=== PATIENT | male | born 1985 | race Asian ===

== ENCOUNTER 2024-04-07 08:15 | Outpatient (REF) | payer OTHER, SELFPAY ==
--- NOTE | ~2024-04-07 | US_ITS ---
EXAMINATION: US COMPLETE ABDOMEN WITH LIVER ELASTOGRAPHY CLINICAL INFORMATION: Chronic hepatitis B. COMPARISON: None available. TECHNIQUE: Real-time imaging of the abdominal viscera. Noninvasive ultrasound liver fibrosis assessment is performed using Annette ElastPQ point quantification shear wave elastography (pSWE) with a C5-2 MHz transducer. Multiple elastography samples are obtained. FINDINGS: PANCREAS: Normal. The visualized pancreatic head and body are normal in appearance. The remainder of the pancreas is obscured from visualization by the overlying bowel gas. ABDOMINAL AORTA: The proximal, middle, and distal aortic segments are normal in caliber. INFERIOR VENA CAVA: Visualized portions are normal. LIVER: Normal. The liver demonstrates normal size, contour and echogenicity. No focal lesion or intrahepatic biliary duct dilatation. The right lobe measures at least 18 cm in length. The left lobe measures 9.5 cm in length. Portal flow is towards the liver (hepatopetal). Shear wave liver elastography median stiffness is 1.69 m/s (reference: normal median stiffness is 1.3 m/s or less). IQR/median stiffness to assess sampling precision is 0.09 (reference: good quality data set is IQR/median stiffness of 0.15 or less). GALLBLADDER: 2 gallbladder polyps are seen measuring 5 and 6 mm in size. The gallbladder is physiologically distended without evidence of stones, sludge, wall thickening or pericholecystic fluid. COMMON BILE DUCT: Normal in caliber measuring 0.4 cm in diameter. RIGHT KIDNEY: Normal. No hydronephrosis. No renal calculi or focal parenchymal lesions. The kidney measures 10.2 cm in maximum dimension. LEFT KIDNEY: There is a mid renal 8 mm echogenic focus seen consistent with a nonobstructing calculus. No hydronephrosis. No focal parenchymal lesions. The kidney measures 10.4 cm in maximum dimension. SPLEEN: Spleen is enlarged measuring 14.3 cm in maximum dimension. FREE FLUID: None. US/US abdomen comp w elastography IMPRESSION: 1. Enlarged fatty liver. 2. Liver Elastography: In the absence of other known clinical signs, measurements rule out compensated advanced chronic liver disease. If there are known clinical signs, further testing may be needed for confirmation. REFERENCE: Society of Radiologists in Ultrasound Liver Stiffness Thresholds (2020): LIVER STIFFNESS THRESHOLDS: *Liver Stiffness equal or less than 1.3 m/s: High probability of being normal. *Liver Stiffness less than 1.7 m/s: In the absence of other known clinical signs, rules out compensated advanced chronic liver disease. *Liver Stiffness 1.7-2.1 m/s: Suggestive of compensated advanced chronic liver disease but need further test for confirmation. *Liver Stiffness over 2.1 m/s: Rules in compensated advanced chronic liver disease. *Liver Stiffness over 2.4 m/s: Suggestive of clinically significant portal hypertension. QUALITY OF DATA SET: *IQR/Median value equal or less than 0.15 implies a quality data set. *IQR/Median value over 0.15 implies a poor quality data set. SIGNIFICANT CHANGE FROM PRIOR EXAM: Significant change if liver stiffness measurement is 10% or greater from prior exam. OTHER CONSIDERATIONS: The stage of liver fibrosis may be overestimated in the setting of acute hepatitis, liver inflammation, elevated liver function tests, hepatic vascular congestion, obstructive cholestasis, non-fasting state, and infiltrative diseases such as amyloidosis and lymphoma. In some patients with NAFLD, the liver stiffness thresholds for compensated advanced chronic liver disease may be lower. In causes other than viral hepatitis and NAFLD, liver stiffness thresholds are not well established. Electronically signed by: Carlo Rubalcava MD 04/14/2024 02:10 PM EDT
[2024-04-07 09:28] LABS: MANUAL DIFF FLAG NO
[2024-04-07 09:34] LABS: Basophils Percent Auto 0.4 % (0-2); Eosinophils Absolute Auto 0.2 X10*3/uL (0.0-0.4); Eosinophils Percent Auto 3.4 % (0-4); Hematocrit 49.5 % (42.0-52.0); Hemoglobin 16.7 g/dl (14.0-18.0); Imm Gran Abs Auto 0.04 X10*3/uL (0.00-0.03); Imm Gran Pct Auto 0.6 % (0.0-0.4); Lymphocytes Absolute Auto 1.6 X10*3/uL (1.2-4.9); Lymphocytes Percent Auto 23.9 % (20-40); Mean Corpuscular HGB Conc 33.7 g/dl (31.0-36.0); Mean Corpuscular Hemoglobin 29.3 pg (27.0-33.0); Mean Platelet Volume 10.7 fL (9.4-12.4); Monocytes Absolute Auto 0.4 X10*3/uL (0.1-1.2); Monocytes Percent Auto 6.3 % (2-11); Neutrophils Absolute Auto 4.5 x10*3/uL (2.0-8.3); Neutrophils Percent Auto 65.4 % (45-73); Platelet Count 180 X10*3/uL (160-400); Red Blood Count 5.69 X10*6/uL (4.60-5.80); Red Cell Distribution Width 12.3 % (11.0-16.0); White Blood Count 6.8 X10*3/uL (4.8-10.8)
[2024-04-07 09:38] LABS: INTERNATIONAL NORM RATIO 0.9 (0.9-1.1); Prothrombin Time 11.2 SEC (11.1-13.3)
[2024-04-07 10:21] LABS: Alanine Aminotransferase 79 U/L (0-40); Albumin Level 4.4 g/dL (3.5-5.0); Alkaline Phosphatase 94 U/L (39-117); Aspartate Amino Transferase 35 U/L (5-37); Bilirubin Direct 0.2 mg/dL (0.0-0.5); Bilirubin Total 0.7 mg/dL (0.0-1.0); Total Protein 7.5 g/dL (6.5-8.0)
[2024-04-07 10:36] LABS: HBS Num1 0.44 mIU/mL (0-7.99); HBc Num1 5.47 S/CO (0.00-0.79); ~HepC Num1 0.07 S/CO (0.00-0.79); ~Hepatitis B Surface Antibody NONREACTIVE (Nonreactive); ~Hepatitis C Antibody Nonreactive (Nonreactive)
[2024-04-07 10:41] LABS: Hepatitis A Antibody IgG REACTIVE (Nonreactive); ~Hepatitis A Antibody IgG 5.95 S/CO (0.00-0.99)
[2024-04-07 11:40] LABS: HBc Num2 5.59 S/CO; HBc Num3 5.78 S/CO; HBsAGNum2 Reactive; HBsAGNum3 Reactive; Hepatitis B Core Antibody Reactive (Nonreactive); Hepatitis B Surface Antigen Retest CNFM (Negative)
[2024-04-08 19:37] LABS: Hepatitis B Core Antibody IgM NON-REACTIVE (NON-REACTIVE)
[2024-04-09 12:43] LABS: Alpha Fetoprotein 1.2 ng/mL (<6.1)
[2024-04-10 00:28] LABS: Hepatitis BE Antibody REACTIVE (NON-REACTIVE); Hepatitis BE Antigen NON-REACTIVE (NON-REACTIVE)
[2024-04-10 14:03] LABS: Hepatitis B Viral DNA Qn - cp NOT DETECTED Log IU/mL (NOT DETECTED); Hepatitis B Viral DNA Qn-IU/mL NOT DETECTED (NOT DETECTED)
[2024-04-14 18:23] LABS: Hepatitis Delta Antibody NEGATIVE
== END 2024-04-07 08:16 | disposition home or self-care (01) ==
LOC: HO.US 08:15
PROVIDERS: Visit Provider Internal Medicine
DX: B18.1 Chronic viral hepatitis B without delta-agent (principal)
CPT/HCPCS: 36415; 76700; 76981; 80076; 82105; 85025; 85610; 86692; 86704; 86705; 86706; 86707; 86708; 86803; 87340; 87350; 87517

== ENCOUNTER 2025-05-20 09:43 | Outpatient (REF) | payer OTHER, SELFPAY ==
--- OUTSIDE RECORDS SUMMARY | 2024-02-11 11:40 | XMS_ITS ---
Author Organization [facility] Address [address] [place] [address] Care Team Providers Care Career Services Representative Name Role Phone Love Garcia M.D. Primary Care Provider Ayo Aguilar [phone] REASON FOR VISIT hepatitis B Encounters Encounter Location Date Provider Diagnosis [facility] [address] [facility] [address] [place] [phone] 02/11/2024 Ayo Jennings Plan Of Treatment Next Appt Details Provider Name:Ayo Jennings , 04/04/2026 09:10:00 AM, [address], [address], [place], [address], Progress Notes * ROSAS ALIA RAMOSNDOB:1985 (39 yo M)Acc No.[id number]:02/11/2024 Progress Notes Patient: Abi CHAWLA MENG [place] Provider: Angelo Jennings MD :1985 A ge:38 Y S ex:Male Date:02/11/2024 Address:[address] [place] [address] [address] [place], [place] Pcp:Love Garcia M.D. Subjective: * Chief Complaints: * 1 . hepatitis B. * Medical History: Objective: * Vitals: Assessment: Plan: * Treatment: * * The named appointment provid er may or may not be the originator of this progress note, and it is not deemed complete until electronically signed by the appointment provider. Sign off status: Pending * Provider: Angelo Jennings MD Date: 02/11/2024 Generated for Rajani zheng/Marissa/Carlitting on: 1 10:50 AM EDT
--- NOTE | ~2025-05-20 | US_ITS ---
EXAMINATION: US ABDOMEN COMPLETE WITH LIVER ELASTOGRAPHY HISTORY: CHRONIC HEPATITIS B TECHNIQUE: Real-time grayscale ultrasound imaging of the abdomen was performed and images were reviewed. COMPARISON: Comparison is made with the prior examination dated 04/07/2024. FINDINGS: Liver: The right lobe of the liver measures 18.1 cm in size. The left lobe of the liver measures 7.7 cm in size. The liver demonstrates increased echotexture, consistent with steatosis. No focal mass or intrahepatic biliary ductal dilatation is identified. There is normal hepatopedal flow in the portal vein. Ultrasound elastography of the liver was performed with 10 separate measurements of the liver parenchyma with the patient in the supine position. Measurements were obtained approximately 2 cm below Anusha's capsule and perpendicular to the capsule. The median shear wave velocity is 1.67 m/s (previously 1.69 m/s). The interquartile range/median (IQR/median) is 0.05. Gallbladder and biliary tree: Multiple polyps noted in the gallbladder measuring up to 5 mm in size. The gallbladder is otherwise unremarkable, without evidence of calculi, wall thickening, or pericholecystic fluid. There is no sonographic Ceballos sign. The common bile duct is normal in caliber measuring 4 mm. Kidneys: The right kidney measures 10.4 cm in length and is unremarkable. The left kidney measures 10.7 cm in length. There are nonobstructing calculi in the midportion of the left kidney measuring up to 5 mm and at the lower pole measuring up to 4 mm. There is no hydronephrosis. Pancreas: The pancreatic head, neck, and body are unremarkable. The pancreatic tail is obscured by bowel gas. Spleen: The spleen is enlarged, measuring 14.1 cm in length. Abdominal aorta and inferior vena cava: The visualized portions of the abdominal aorta and inferior vena cava are normal in caliber. There is no free fluid in the abdomen. US/US abdomen comp w elastography IMPRESSION: 1. Hepatosplenomegaly and hepatic steatosis. 2. Left nephrolithiasis as described. The median shear wave velocity in the liver is 1.67 m/s, corresponding to a median liver stiffness of 8.65 kPa. The IQR/median value is 0.05. This is indicative of a quality data set. Findings are indicative of a low elastography value which rules out advanced chronic liver disease in asymptomatic patients. REFERENCE: Society of Radiologists in Ultrasound Liver Stiffness Thresholds (2020): LIVER STIFFNESS THRESHOLDS: *Shear wave velocity less than 1.3 m/s (Liver Stiffness equal or less than 5 kPa): High probability of being normal. *Shear wave velocity less than 1.7 m/s (Liver Stiffness less than 9 kPa): In the absence of other known clinical signs, rules out compensated advanced chronic liver disease. *Shear wave velocity between 1.7-2.1 m/s (Liver Stiffness 9-13 kPa): Suggestive of compensated advanced chronic liver disease but need further test for confirmation. *Shear wave velocity between 2.1-2.4 m/s (Liver Stiffness 13-17 kPa): Rules in compensated advanced chronic liver disease. *Shear wave velocity greater than 2.4 m/s (Liver Stiffness over 17 kPa): Suggestive of clinically significant portal hypertension. QUALITY OF DATA SET: *IQR/Median value equal or less than 0.15 implies a quality data set. *IQR/Median value over 0.15 implies a poor quality data set. SIGNIFICANT CHANGE FROM PRIOR EXAM: Significant change if liver stiffness measurement is 10% or greater from prior exam. OTHER CONSIDERATIONS: The stage of liver fibrosis may be overestimated in the setting of acute hepatitis, liver inflammation, elevated liver function tests, hepatic vascular congestion, obstructive cholestasis, non-fasting state, and infiltrative diseases such as amyloidosis and lymphoma. In some patients with NAFLD, the liver stiffness thresholds for compensated advanced chronic liver disease may be lower. In causes other than viral hepatitis and NAFLD, liver stiffness thresholds are not well established. Electronically signed by: Ayo Jensen MD 05/20/2025 12:15 PM EDT
[2025-05-20 09:55] LABS: MANUAL DIFF FLAG NO
[2025-05-20 10:50] LABS: Hematocrit 53.6 % (42.0-52.0); Hemoglobin 18.0 g/dl (14.0-18.0); Imm Gran Abs Auto 0.05 X10*3/uL (0.00-0.03); Imm Gran Pct Auto 0.7 % (0.0-0.4); Lymphocytes Absolute Auto 1.8 X10*3/uL (1.2-4.9); Mean Corpuscular HGB Conc 33.6 g/dl (31.0-36.0); Mean Corpuscular Hemoglobin 29.0 pg (27.0-33.0); Mean Corpuscular Volume 86.3 fL (80.0-98.0); NRBC Abs Auto 0.000 X10*3/uL (0.0-0.012); NRBC Pct Auto 0.0 /100WBC (0.0-0.2); Platelet Count 223 X10*3/uL (160-400); Red Blood Count 6.21 X10*6/uL (4.60-5.80); White Blood Count 7.0 X10*3/uL (4.8-10.8)
--- OUTSIDE RECORDS SUMMARY | 2025-05-20 10:50 | XMS_ITS | Patient Health Record ---
Author Organization [facility] Address [address] [place] [address] Care Team Providers Care Lunchroom Operator Name Role Phone Love Garcia M.D. Primary Care Provider Ayo Aguilar Unavailable [phone] Allergies No Known Allergies Reason For Referral No Information Medications Medication SIG (Take, Route, Frequency, Duration) Notes Start Date End Date Status Tenofovir Disoproxil Fumarate 300 MG TAKE ONE TABLET BY MOUTH EVERY DAY WITH A MEAL Oral Once a day; Duration: 30 days Active Ketoconazole 2 % External; Duration: 15 Active Immunizations Vaccine Route Administration Date Status Comme nts Influenza Unknown 03/31/2025 Refused Social History Tobacco Use: Social History Observation Description Date Details (start date - stop date) Never Smoker NA - NA Tobacco Use/Smoking Question Answer Notes Patient is a nonsmoker Alcohol Screen Question Answer Notes Did you have a drink containing alcohol in the p ast year? No Points 0 Interpretation Negative Section Notes: Nonsmoker; no alcohol Nonsmoker; no alcohol Problems Problem Type SNOMED Code ICD Code Onset Dates Problem Status W/U Status Risk Notes Problem Information temporarily unavailable Chronic viral hepatitis B without delta-agent (B18.1) Active confirmed Problem Information temporarily unavailable Hepatitis B, chronic (B18.1) Active confirmed Vital Signs Temperature 97.5 degrees Fahrenheit 03/31/2025 Blood pressure diastolic 01 mm Hg 03/31/2025 Height 66 in 03/31/2025 Blood pressure systolic 001 mm Hg 03/31/2025 Weight 161.2 lbs 03/31/2025 BMI 26.02 kg/m2 03/31/2025 Encounters Encounter Location Date Provider Diagnosis [facility] [address] [place] [address] 03/31/2025 Ayo Jennings Chronic viral hepatitis B without delta-agent B18.1 [facility] [address] [place] [address] 09/22/2024 Ayo Jennings Assessments Encounter Date Diagnosis (ICD Code) Assessment Notes Treatment Notes Treatment Clinical Notes Section Notes 03/31/2025 Chronic viral hepatitis B without delta-agent (ICD-10 - B18.1) Overall, Manuel appears very well. He does not have any symptoms nor show any signs of progressive liver disease. His laboratories and ultrasound from last year are very reassuring as well. We did review all of this today and I advised him to simply continue his tenofovir on a daily and regular basis. We did review that he should never stop the tenofovir as that can cause sudden worsening of his liver disease if the hepatitis B virus was to become active again. I shall check a follow-up abdominal ultrasound along with the below laboratories to reassess the chronic hepatitis B. We did review the need for yearly labs and ultrasound due to the increased risk of liver cancer in patients with chronic hepatitis B. If things appear stable on his upcoming studies and he feels well he will see me in 1 year. I did advise him to certainly call me in the interim if he has any problems or questions I can be of assistance with. Manuel was comfortable with this plan. Thank you again for allowing me to participate in Manuel's care. I shall continue to keep you advised of his progress. Plan Of Treatment Pending Test Test Name Order Date LIVER PROFILE 04/01/2024 LIVER PROFILE 03/31/2025 CBC w DIFF 03/31/2025 CBC w DIFF 04/01/2024 HEPATITIS B PROFILE 04/01/2024 ALPHA-FETOPROTEIN,TUMOR MARKER 5 ALPHA-FETOPROTEIN,TUMOR MARKER 4 HEPATITIS B E ANTIBODY 04/01/2024 HEPATITIS B E ANTIGEN 04/01/2024 HEPATITIS A ANTIBODY-IGG 04/01/2024 HEPATITIS B DNA QN PCR RFLX HBV GENOTYPE 04/01/2024 Prothrombin Time INR 03/31/2025 Liver Fibrosis Pnl 03/31/2025 Hepatitis B Viral DNA Qn 03/31/2025 US abdomen comp w elastography 5 Next Appt Details Provider Name:Ayo Jennings , 04/04/2026 09:10:00 AM, [address], [address], [place], [address], Insurance Providers Payer Name Payer Address Payer Phone Subscriber Number Group Number Insured Name Patient Relationship to Insured Coverage Start Date Coverage End Date [facility] [address] [address] [place], [place] [id number] [phone] [id number] MANUEL ROSAS Self - patient is the insured Medical (General) History Medical History History ICD Code Chronic hepatitis B diagnose d in his teen years and previously followed in [facility]. He has been on Tenofovir since at least 2019. He has had no clinical signs of liver disease nor acute hepatitis. He has never had a liver biopsy Denies NE,DM,CVA,Lung disease,renal dise ase Surgical History Surgery Date(Month/Year)
[2025-05-20 10:58] LABS: INTERNATIONAL NORM RATIO 0.9 (0.9-1.1); Prothrombin Time 10.3 SEC (10.9-12.4)
[2025-05-20 11:24] LABS: Alanine Aminotransferase 171 U/L (0-40); Albumin Level 4.9 g/dL (3.5-5.0); Alkaline Phosphatase 95 U/L (39-117); Aspartate Amino Transferase 59 U/L (5-37); Total Protein 8.1 g/dL (6.5-8.0)
[2025-05-24 15:09] LABS: Hepatitis B Viral DNA Qn - cp <1.00 DETECTED Log IU/mL (NOT DETECTED); Hepatitis B Viral DNA Qn-IU/mL <10 DETECTED IU/mL (NOT DETECTED)
[2025-05-27 20:48] LABS: FIB-ALT 129 U/L (9-46); FIB-Alpha-2-Macroglobulin 148 mg/dL (106-279); FIB-Apolipoprotein A1 139 mg/dL (94-176); FIB-GGT 62 U/L (3-90); FIB-Haptoglobin 67 mg/dL (43-212); FIB-Total Bilirubin 0.5 mg/dL (0.2-1.2); Liver Fibrosis Score 0.21; Liver Fibrosis Stage F0; Nec Inflam Act Grade A3; Nec Inflam Act Score 0.64
== END 2025-05-20 09:44 | disposition home or self-care (01) ==
LOC: HO.US 09:43
PROVIDERS: Visit Provider Internal Medicine
DX: B18.1 Chronic viral hepatitis B without delta-agent (principal)
CPT/HCPCS: 36415; 76700; 76981; 80076; 81596; 82105; 85025; 85610; 87517

== ENCOUNTER → 2025-05-20 10:50 | Outpatient (BNV) | payer OTHER, SELFPAY | PROVIDERS: Visit Provider Radiology Diagnostic Radiology | DX: R16.2 Hepatomegaly with splenomegaly, not elsewhere classified (principal); K76.0 Fatty (change of) liver, not elsewhere classified; N20.0 Calculus of kidney | CPT/HCPCS: 76700 ==

== ENCOUNTER 2025-07-05 10:51 | Outpatient (REF) | payer OTHER, SELFPAY ==
[2025-07-05 12:27] LABS: Alanine Aminotransferase 284 U/L (0-40); Albumin Level 5.1 g/dL (3.5-5.0); Alkaline Phosphatase 91 U/L (39-117); Aspartate Amino Transferase 84 U/L (5-37); Total Protein 8.1 g/dL (6.5-8.0)
== END 2025-07-05 10:52 ==
LOC: HO.LAB 10:51
PROVIDERS: Visit Provider Internal Medicine
DX: R94.5 Abnormal results of liver function studies (principal)
CPT/HCPCS: 36415; 80076

== ENCOUNTER 2025-07-19 12:38 | Outpatient (REF) | payer OTHER, SELFPAY ==
--- OUTSIDE RECORDS SUMMARY | 2024-02-11 10:40 | XMS_ITS ---
Author Organization [facility] Address [address] [place] [address] Care Team Providers Care Transportation Coordinator Name Role Phone Love Garcia M.D. Primary Care Provider Jose L JenningsAyo Unavailable [phone] REASON FOR VISIT hepatitis B Encounters Encounter Location Date Provider Diagnosis [facility] [address] [facility] [address] [place] [phone] 02/11/2024 Ayo Jennings Plan Of Treatment Next Appt Details Provider Name:Ayo Jennings , 04/04/2026 09:10:00 AM, [address], [address], [place], [address], Progress Notes * RALPH ALIA RAMOSNDOB:1985 (40 yo M)Acc No.[id number]:02/11/2024 Progress Notes Patient: Abi CHAWLA MENG [place] Provider: Angelo Jennings MD :1985 A ge:38 Y S ex:Male Date:02/11/2024 Address:[address] [place] [address] [address], [place] Pcp:Love Garcia M.D. Subjective: * Chief Complaints: * h epatitis B * The named appointment provid er may or may not be the originator of this progress note, and it is not deemed complete until electronically signed by the appointment provider. Sign off status: Pending * Provider: Angelo Jennings MD Date: 0 02/11/2024 Generated for Rajani zheng/Marissa/Kelliesmitting on: 09/19/2024 01:42 PM EST
--- OUTSIDE RECORDS SUMMARY | 2025-07-15 09:15 | XMS_ITS ---
Author Organization [facility] Address [address] [place] [address] Care Team Providers Care City Letter Carrier Name Role Phone Love Garcia M.D. Primary Care Provider Jose L JenningsAyo Unavailable [phone] REASON FOR VISIT Needs labs Problems Problem Type SNOMED Code ICD Code Onset Dates Problem Status W/U Status Risk Notes Problem Chronic type B viral hepatitis ([id number]) Chronic hepatitis B (B18.1) Active confirmed Encounters Encounter Location Date Provider Diagnosis [facility] [address] [place] [phone] 07/15/2025 Ayo Jennings Chronic hepatitis B B18.1 and Elevated liver function tests R94.5 Assessments Encounter Date Diagnosis (ICD Code) Assessment Notes Treatment Notes Treatment Clinical Notes Section Notes 07/15/2025 Chronic hepatitis B (ICD-10 - B18.1) 07/15/2025 Elevated liver function tests (ICD-10 - R94.5) Plan Of Treatment Pending Test Test Name Order Date CHEM 7 PROFILE 07/15/2025 LIVER PROFILE 07/15/2025 IRON + IBC (FE) 07/15/2025 CBC w DIFF 07/15/2025 HEPATITIS B DNA QN PCR RFLX HBV GENOTYPE 07/15/2025 Prothrombin Time INR 07/15/2025 Ferritin 07/15/2025 Ceruloplasmin 07/15/2025 Alpha 1 Anti-trypsin 07/15/2025 ANAID Reflex Titer and Pattern 07/15/2025 Mitochondrial Antibody 07/15/2025 Smooth Muscle Antibody 07/15/2025 Hepatitis A Antibody IgM 07/15/2025 Hepatitis A Antibody IgG 07/15/2025 Hepatitis Delta Antibody 07/15/2025 Hemoglobin A1c 07/15/2025 Hepatitis C Antibody Reflex 07/15/2025 Next Appt Details Provider Name:Ayo Jennings , 04/04/2026 09:10:00 AM, [address], [address], [place], [address], Progress Notes * ALIA ROSAS RICHARDNDOB:1985 (40 yo M)Acc No.[id number]:07/15/2025 Patient: ALIA GOSSN :1985 A ge:39 Y S ex:Male Address:[address] [place] [address] [address] , [place], [address] Subjective: * Chief Complaints: * N eeds labs Assessment: * Assessment: 1. C hronic hepatitis B - B18.1 (Primary) 2 . E levated liver function tests - R94.5 Plan: * Treatment: 2. E levated liver function tests L AB: CHEM 7 PROFILE L AB: LIVER PROFILE L AB: IRON + IBC (FE) L AB: CBC w DIFF L AB: HEPATITIS B DNA QN PCR RFLX HBV GENOTYPE L AB: Prothrombin Time INR L AB: Ferritin L AB: Ceruloplasmin L AB: Alpha 1 Anti-trypsin L AB: ANAID Reflex Titer and Pattern L AB: Mitochondrial Antibody L AB: Smooth Muscle Antibody L AB: Hepatitis A Antibody IgM L AB: Hepatitis A Antibody IgG L AB: Hepatitis Delta Antibody L AB: Hemoglobin A1c L AB: Hepatitis C Antibody Reflex * true * Date: Generated for Rajani zheng/Marissa/eTsusysmitting on: 09/19/2024 01:42 PM EST
[2025-07-19 13:10] LABS: MANUAL DIFF FLAG NO
--- OUTSIDE RECORDS SUMMARY | 2025-07-19 13:43 | XMS_ITS | Patient Health Record ---
Author Organization [facility] Address [address] [place] [address] Care Team Providers Care Beef Splitter Name Role Phone Love Garcia M.D. Primary Care Provider Ayo Aguilar Unavailable [phone] Allergies No Known Allergies Results Component Value Reference Range Flag Notes Complete Blood Count Auto Di ff Reviewed date:05/20/2025 10:45:27 PM Interpretation: Performing Lab:[facility], [address] [place] [phone] Notes/Report: White Blood Count 7.0 4.8-10.8 X10*3/uL N Red Blood Count 6.21 4.60-5.80 X10*6/uL H Hemoglobin 18.0 14.0-18.0 g/dl N Hematocrit 53.6 42.0-52.0 % H Mean Corpuscular Volume 86.3 80.0-98.0 fL N Mean Corpuscular Hemoglobin 29.0 27.0-33.0 pg N Mean Corpuscular HGB Conc 33.6 31.0-36.0 g/dl N Red Cell Distribution Width 12.5 11.0-16.0 % N Platelet Count 223 160-400 X10*3/uL N Mean Platelet Volume 10.4 9.4-12.4 fL N Neutrophils Percent Auto 64.9 45-73 % N Imm Gran Pct Auto 0.7 0.0-0.4 % H Lymphocytes Percent Auto 24.9 20-40 % N Monocytes Percent Auto 6.6 2-11 % N Eosinophils Percent Auto 2.3 0-4 % N Basophils Percent Auto 0.6 0-2 % N NRBC Pct Auto 0.0 0.0-0.2 /100WBC N Neutrophils Absolute Auto 4.6 2.0-8.3 x10*3/uL N Imm Gran Abs Auto 0.05 0.00-0.03 X10*3/uL H Lymphocytes Absolute Auto 1.8 1.2-4.9 X10*3/uL N Monocytes Absolute Auto 0.5 0.1-1.2 X10*3/uL N Eosinophils Absolute Auto 0.2 0.0-0.4 X10*3/uL N Basophils Absolute Auto 0.0 0.0-0.2 X10*3/uL N NRBC Abs Auto 0.000 0.0-0.012 X10*3/uL N Prothrombin Time INR Reviewed date:05/20/2025 10:49:14 PM Interpretation: Performing Lab:[address] [phone] Notes/Report: Prothrombin Time 10.3 10.9-12.4 SEC L INTERNATIONAL NORM RATIO 0.9 0.9-1.1 N INTERNATIONAL NORMALIZED RATIO (INR) REFERENCE RANGES Reference Range For patients not on anticoagulant therapy: 0.9 - 1.1 INR ranges for oral anticoagulant therapy: For prevention and treatment of venous thrombosis and pulmonary embolism: 2.0 - 3.0 For acute myocardial infarction with aspirin therapy: 2.0 - 3.0 For acute myocardial infarction without aspirin therapy: 3.0 - 4.0 For patients with mechanical prosthetic heart valves: 2.5 - 3.5 Liver Panel Reviewed date:06/29/2025 12:27:28 AM Interpretation: Performing Lab:[address] [phone] Notes/Report: Bilirubin Total 0.7 0.0-1.0 mg/dL N Bilirubin Direct 0.2 0.0-0.5 mg/dL N Aspartate Amino Transferase 59 5-37 U/L H Alanine Aminotransferase 171 0-40 U/L H Total Protein 8.1 6.5-8.0 g/dL H Albumin Level 4.9 3.5-5.0 g/dL N Alkaline Phosphatase 95 39-117 U/L N Alpha Fetoprotein Reviewed date:06/06/2025 12:40:28 AM Interpretation: Performing Lab:[address] [place] [address] Notes/Report: Alpha Fetoprotein 2.4 <6.1 ng/mL N This test was performed using the Bola Michelle chemiluminescent method. Values obtained from different assay methods cannot be used interchangeably. AFP levels, regardless of value, should not be interpreted as absolute evidence of the presence or absence of disease. THIS TEST WAS PERFORMED AT: [employer] [address] [place] [phone] EMORY ENNIS MD Liver Fibrosis Pnl Reviewed date:06/06/2025 12:39:52 AM Interpretation: Performing Lab:[facility], [address] [place] [phone] Notes/Report: Liver Fibrosis Score 0.21 Liver Fibrosis Stage F0 Liver Fibrosis Interpretation SEE NOTE no fibrosis Fibro Test Score (f) Metavir Score f>=0 and f<=0.21 : F0 (no fibrosis) f>0.21 and f<=0.27 : F0-F1 (no fibrosis) f>0.27 and f<=0.31 : F1 (minimal fibrosis) f>0.31 and f<=0.48 : F1-F2 (minimal fibrosis) f>0.48 and f<=0.58 : F2 (moderate fibrosis) f>0.58 and f<=0.72 : F3 (advanced fibrosis) f>0.72 and f<=0.74 : F3-F4 (advanced fibrosis) f>0.74 and f<=1.00 : F4 (severe fibrosis) Nec Inflam Act Score 0.64 Nec Inflam Act Grade A3 Nec Inflam Act Interpretation SEE NOTE severe activity ActiTest Score (a) Metavir Score a>=0 and a<=0.17 : A0 (no activity) a>0.17 and a<=0.29 : A0-A1 (no activity) a>0.29 and a<=0.36 : A1 (minimal activity) a>0.36 and a<=0.52 : A1-A2 (minimal activity) a>0.52 and a<=0.60 : A2 (significant activity) a>0.60 and a<=0.62 : A2-A3 (significant activity) a>0.62 and a<=1.00 : A3 (severe activity) XXN-Wkexc-2-Macroglobulin 148 106-279 mg/dL FIB-Haptoglobin 67 43-212 mg/dL FIB-Apolipoprotein A1 139 94-176 mg/dL FIB-Total Bilirubin 0.5 0.2-1.2 mg/dL FIB-GGT 62 3-90 U/L FIB-ALT 129 9-46 U/L A Reference ID [id number] Footnote SEE NOTE The reliability of results is dependent on compliance with the preanalytical and analytical conditions recommended by [employer]. The tests have to be deferred for: acute hemolysis, acute hepatitis, acute inflammation, extra hepatic cholestasis. The advice of a specialist should be sought for interpretation in chronic hemolysis and Gilbert's syndrome. The test interpretation is not validated in liver transplant patients. Isolated extreme values of one of the components should lead to caution in interpreting the results. In case of discordance between a biopsy result and a test, it is recommended to seek the advice of a specialist. The causes of these discordances could be due to a flaw of the test or to a flaw in the biopsy: i.e. a liver biopsy has a 33% variability rate for one fibrosis stage. FibroTest is interpretable for chronic hepatitis B and C, alcoholic and non alcoholic steatosis. ActiTest is interpretable for chronic hepatitis B and C. The performance characteristics have been determined by [facility]. It has not been cleared or approved by the U.S. Food and Drug Administration. Performance characteristics refer to the analytical performance of the test. [employer], the associated logo, [employer] and all associated [employer] hurtado are the registered trademarks of [employer]. All third democrat hurtado - (R) and (TM) - are the property of their respective owners. (C) 2206-9904 [employer]. All rights reserved. THIS TEST WAS PERFORMED AT: [employer] [facility] [address] [place] [address] DIOGENES ROTHMAN MD,PHD,YASMIN Hepatitis B Viral DNA Qn Reviewed date:05/25/2025 01:35:03 AM Interpretation: Performing Lab:[facility], [address] [place] [phone] Notes/Report: Hepatitis B Viral DNA Qn - cp <1.00 DETECTED NOT DETECTED Log IU/mL A HBV DNA was detected below 10 IU/mL. Viral nucleic acid detected below this level cannot be quantified by the assay. This test was performed using Real-Time Polymerase Chain Reaction. Reportable Range: 10 IU/mL to 1,000,000,000 IU/mL. (1.00 Log IU/mL to 9.00 Log IU/mL). THIS TEST WAS PERFORMED AT: [facility] [address] [place] [phone] EMORY ENNIS MD Hepatitis B Viral DNA Qn-IU/mL <10 DETECTED NOT DETECTED IU/mL A US abdomen comp w elastograp hy Reviewed date:06/29/2025 12:20:24 AM Interpretation: Performing Lab: Notes/Report: [address] [address] Ultrasound Report Signed Patient: Manuel Rosas MR#: [id number] 6 : 1985 Acct:[id number] Age/Sex: 39 / M ADM Date: 05/20/25 Loc: HO.US Attending Dr: Ayo Jennings MD Ordering Physician: Ayo Jennings MD Date of Service: 05/20/25 Procedure(s): US abdomen comp w elastography Accession Number(s): [id number] cc: Abram Mcfadden DNP; Ayo Jennings MD Reason for Exam: CHRONIC HEPATITIS B EXAMINATION: US ABDOMEN COMPLETE WITH LIVER ELASTOGRAPHY HISTORY: CHRONIC HEPATITIS B TECHNIQUE: Real-time grayscale ultrasound imaging of the abdomen was performed and images were reviewed. COMPARISON: Comparison is made with the prior examination dated 04/07/2024. FINDINGS: Liver: The right lobe of the liver measures 18.1 cm in size. The left lobe of the liver measures 7.7 cm in size. The liver demonstrates increased echotexture, consistent with steatosis. No focal mass or intrahepatic biliary ductal dilatation is identified. There is normal hepatopedal flow in the portal vein. Ultrasound elastography of the liver was performed with 10 separate measurements of the liver parenchyma with the patient in the supine position. Measurements were obtained approximately 2 cm below Anusha's capsule and perpendicular to the capsule. The median shear wave velocity is 1.67 m/s (previously 1.69 m/s). The interquartile range/median (IQR/median) is 0.05. Gallbladder and biliary tree: Multiple polyps noted in the gallbladder measuring up to 5 mm in size. The gallbladder is otherwise unremarkable, without evidence of calculi, wall thickening, or pericholecystic fluid. There is no sonographic Ceballos sign. The common bile duct is normal in caliber measuring 4 mm. Kidneys: The right kidney measures 10.4 cm in length and is unremarkable. The left kidney measures 10.7 cm in length. There are nonobstructing calculi in the midportion of the left kidney measuring up to 5 mm and at the lower pole measuring up to 4 mm. There is no hydronephrosis. Pancreas: The pancreatic head, neck, and body are unremarkable. The pancreatic tail is obscured by bowel gas. Spleen: The spleen is enlarged, measuring 14.1 cm in length. Abdominal aorta and inferior vena cava: The visualized portions of the abdominal aorta and inferior vena cava are normal in caliber. There is no free fluid in the abdomen. US/US abdomen comp w elastography IMPRESSION: 1. Hepatosplenomegaly and hepatic steatosis. 2. Left nephrolithiasis as described. The median shear wave velocity in the liver is 1.67 m/s, corresponding to a median liver stiffness of 8.65 kPa. The IQR/median value is 0.05. This is indicative of a quality data set. Findings are indicative of a low elastography value which rules out advanced chronic liver disease in asymptomatic patients. REFERENCE: Society of Radiologists in Ultrasound Liver Stiffness Thresholds (2019): LIVER STIFFNESS THRESHOLDS: *Shear wave velocity less than 1.3 m/s (Liver Stiffness equal or less than 5 kPa): High probability of being normal. *Shear wave velocity less than 1.7 m/s (Liver Stiffness less than 9 kPa): In the absence of other known clinical signs, rules out compensated advanced chronic liver disease. *Shear wave velocity between 1.7-2.1 m/s (Liver Stiffness 9-13 kPa): Suggestive of compensated advanced chronic liver disease but need further test for confirmation. *Shear wave velocity between 2.1-2.4 m/s (Liver Stiffness 13-17 kPa): Rules in compensated advanced chronic liver disease. *Shear wave velocity greater than 2.4 m/s (Liver Stiffness over 17 kPa): Suggestive of clinically significant portal hypertension. QUALITY OF DATA SET: *IQR/Median value equal or less than 0.15 implies a quality data set. *IQR/Median value over 0.15 implies a poor quality data set. SIGNIFICANT CHANGE FROM PRIOR EXAM: Significant change if liver stiffness measurement is 10% or greater from prior exam. OTHER CONSIDERATIONS: The stage of liver fibrosis may be overestimated in the setting of acute hepatitis, liver inflammation, elevated liver function tests, hepatic vascular congestion, obstructive cholestasis, non-fasting state, and infiltrative diseases such as amyloidosis and lymphoma. In some patients with NAFLD, the liver stiffness thresholds for compensated advanced chronic liver disease may be lower. In causes other than viral hepatitis and NAFLD, liver stiffness thresholds are not well established. Electronically signed by: Ayo Jensen MD 05/20/2025 12:15 PM EDT RP Dictated By: Ayo Jensen MD Signed By: <Electronically signed by Ayo Jensen MD in OV> 05/20/25 1215 DD/ 1050 TD/TT: 05/20/25 1113 Implementation Engineer: Liver Panel (Not yet reviewe d by provider) Interpretation: Performing Lab:[facility], [address] [place] [phone] Notes/Report: Bilirubin Total 0.9 0.0-1.0 mg/dL N Bilirubin Direct 0.2 0.0-0.5 mg/dL N Aspartate Amino Transferase 84 5-37 U/L H Alanine Aminotransferase 284 0-40 U/L H Total Protein 8.1 6.5-8.0 g/dL H Albumin Level 5.1 3.5-5.0 g/dL H Alkaline Phosphatase 91 39-117 U/L N Reason For Referral No Information Medications Medication SIG (Take, Route, Frequency, Duration) Notes Start Date End Date Status Tenofovir Disoproxil Fumarate 300 MG Tablet TAKE ONE TABLET BY MOUTH EVERY DAY WITH A MEAL Oral Once a day; Duration: 30 days Active Ketoconazole 2 % Cream External; Duration: 15 Active Immunizations Vaccine Route Administration Date Status Comme nts Influenza Unknown 03/31/2025 Refused Social History Tobacco Use: Social History Observation Description Date Details (start date - stop date) Never Smoker NA - NA Social History Drugs/Alcohol: Social Info Question Answer Notes Alcohol Screen Did you have a drink containing alcohol in the past year? No Points 0 Interpretation Negative Tobacco Use: Social Info Question Answer Notes Tobacco Use/Smoking Patient is a nonsmoker Additional Details Category Social Info Options Details Miscellaneous: Marital status: Single Occupation: [employer] in a [employer] Section Notes: Nonsmoker; no alcohol Nonsmoker; no alcohol Problems Problem Type SNOMED Code ICD Code Onset Dates Problem Status W/U Status Risk Notes Problem Chronic viral hepatitis B without delta-agent (630544934) Chronic viral hepatitis B without delta-agent (B18.1) Active confirmed Problem Chronic type B viral hepatitis (75813587) Chronic hepatitis B (B18.1) Active confirmed Problem Elevated liver enzymes level (353773961) Elevated liver function tests (R94.5) Active confirmed Problem Chronic type B viral hepatitis (12794486) Hepatitis B, chronic (B18.1) Active confirmed Vital Signs Temperature 97.5 degrees Fahrenheit 03/31/2025 Blood pressure diastolic 01 mm Hg 03/31/2025 Height 66 in 03/31/2025 Blood pressure systolic 001 mm Hg 03/31/2025 Weight 161.2 lbs 03/31/2025 BMI 26.02 kg/m2 03/31/2025 Encounters Encounter Location Date Provider Diagnosis [facility] [address] [place] [phone] 03/31/2025 Ayo Jennings Chronic viral hepatitis B without delta-agent B18.1 [facility] [address] [place] [phone] 09/22/2024 Ayo Jennings [facility] [address] [place] [phone] 06/06/2025 Ayo Jennings Elevated liver function tests R94.5 [facility] [address] [place] [phone] 07/15/2025 Ayo Jennings Chronic hepatitis B B18.1 [...] questions I can be of assistance with. Mnauel was comfortable with this plan. Thank you again for allowing me to participate in Manuel's care. I shall continue to keep you advised of his progress. 06/06/2025 Elevated liver function tests (ICD-10 - R94.5) 07/15/2025 Chronic hepatitis B (ICD-10 - B18.1) 07/15/2025 Elevated liver function tests (ICD-10 - R94.5) Plan Of Treatment Pending Test Test Name Order Date CHEM 7 PROFILE 07/15/2025 LIVER PROFILE 07/15/2025 LIVER PROFILE 04/01/2024 LIVER PROFILE 03/31/2025 LIVER PROFILE 06/06/2025 IRON + IBC (FE) 07/15/2025 CBC w DIFF 07/15/2025 CBC w DIFF 03/31/2025 CBC w DIFF 04/01/2024 HEPATITIS B PROFILE 04/01/2024 ALPHA-FETOPROTEIN,TUMOR MARKER ALPHA-FETOPROTEIN,TUMOR MARKER HEPATITIS B E ANTIBODY 04/01/2024 HEPATITIS B E ANTIGEN 04/01/2024 HEPATITIS A ANTIBODY-IGG 04/01/2024 HEPATITIS B DNA QN PCR RFLX HBV GENOTYPE 04/01/2024 HEPATITIS B DNA QN PCR RFLX HBV GENOTYPE 07/15/2025 Prothrombin Time INR 03/31/2025 Prothrombin Time INR 07/15/2025 Liver Panel 07/05/2025 Ferritin 07/15/2025 Ceruloplasmin 07/15/2025 Alpha 1 Anti-trypsin 07/15/2025 Liver Fibrosis Pnl 03/31/2025 ANAID Reflex Titer and Pattern 07/15/2025 Mitochondrial Antibody 07/15/2025 Smooth Muscle Antibody 07/15/2025 Hepatitis A Antibody IgM 07/15/2025 Hepatitis A Antibody IgG 07/15/2025 Hepatitis B Viral DNA Qn 03/31/2025 Hepatitis Delta Antibody 07/15/2025 US abdomen comp w elastography Hemoglobin A1c 07/15/2025 Hepatitis C Antibody Reflex 07/15/2025 Next Appt Details Provider Name:Ayo Jennings , 04/04/2026 09:10:00 AM, [address] [facility], [address], [place], [address], Insurance Providers Payer Name Payer Address Payer Phone Subscriber Number Group Number Insured Name Patient Relationship to Insured Coverage Start Date Coverage End Date [facility] [address] [address] [place], [place] [id number] MANUEL ROSAS Self - patient is the insured Medical (General) History Medical History History ICD Code Chronic hepatitis B diagnose d in his teen years and previously followed in [facility]. He has been on Tenofovir since at least 2019. He has had no clinical signs of liver disease nor acute hepatitis. He has never had a liver biopsy Denies VA,DM,CVA,Lung disease,renal dise ase Surgical History Surgery Date(Month/Year)
[2025-07-19 14:03] LABS: Hemoglobin 18.3 g/dl (14.0-18.0); Imm Gran Abs Auto 0.03 X10*3/uL (0.00-0.03); Imm Gran Pct Auto 0.5 % (0.0-0.4); Lymphocytes Absolute Auto 1.5 X10*3/uL (1.2-4.9); Mean Corpuscular HGB Conc 33.2 g/dl (31.0-36.0); Mean Corpuscular Hemoglobin 29.5 pg (27.0-33.0); Mean Corpuscular Volume 88.9 fL (80.0-98.0); NRBC Abs Auto 0.000 X10*3/uL (0.0-0.012); NRBC Pct Auto 0.0 /100WBC (0.0-0.2); Platelet Count 220 X10*3/uL (160-400); Red Blood Count 6.20 X10*6/uL (4.60-5.80); White Blood Count 6.2 X10*3/uL (4.8-10.8)
[2025-07-19 14:04] LABS: Hematocrit 55.1 % (42.0-52.0)
[2025-07-19 14:18] LABS: INTERNATIONAL NORM RATIO 0.9 (0.9-1.1); Prothrombin Time 11.0 SEC (11.2-13.5)
[2025-07-19 14:47] LABS: Alanine Aminotransferase 216 U/L (0-40); Albumin Level 5.1 g/dL (3.5-5.0); Alkaline Phosphatase 100 U/L (39-117); Anion Gap 12 (12-20); Aspartate Amino Transferase 73 U/L (5-37); Blood Urea Nitrogen 19 mg/dL (9-16); Calcium 9.6 mg/dL (8.4-10.2); Carbon Dioxide 28 mmol/L (22-29); Chloride 105 mmol/L (96-108); Estimated Glomerular Filt Rate > 60; Iron 89 mcg/dL (45-160); Percent Iron Saturation 30 % (15-50); Potassium 4.0 mmol/L (3.3-5.1); Sodium 141 mmol/L (135-145); Total Iron Binding Capacity 296 mcg/dL (228-428); Total Protein 8.0 g/dL (6.5-8.0); Unsaturated Iron Binding 207 ug/dL
[2025-07-19 15:01] LABS: Ferritin 462 ng/mL (20-250)
[2025-07-20 03:49] LABS: ~HepC Num1 0.08 S/CO (0.00-0.79); ~Hepatitis C Antibody Nonreactive (Nonreactive)
[2025-07-20 03:52] LABS: Hepatitis A Antibody IgM 0.18 Index (0-0.79); ~Hepatitis A Antibody IgM Nonreactive (Nonreactive)
[2025-07-20 23:34] LABS: Hepatitis B Viral DNA Qn - cp NOT DETECTED Log IU/mL (NOT DETECTED); Hepatitis B Viral DNA Qn-IU/mL NOT DETECTED (NOT DETECTED)
[2025-07-22 03:32] LABS: ~Hepatitis A Antibody IgG 5.67 S/CO (0.00-0.99)
== END 2025-07-19 12:39 | disposition home or self-care (01) ==
LOC: HO.LAB 12:38
PROVIDERS: Visit Provider Internal Medicine
DX: Z01.84 Encounter for antibody response examination (principal); B18.1 Chronic viral hepatitis B without delta-agent; R94.5 Abnormal results of liver function studies; Z11.59 Encounter for screening for other viral diseases
CPT/HCPCS: 36415; 80048; 80076; 82103; 82390; 82728; 83036; 83540; 85025; 85610; 86015; 86038; 86381; 86692; 86708; 86709; 86803; 87517